=== PATIENT | male | born 1955 | race African-American/Black ===

== ENCOUNTER 2020-12-26 10:30 | Inpatient (IN) | payer MEDICARE, MEDICAID ==
[~2020-12-26] VITALS: Ht 177.8 cm; Wt 88.9 kg
[~2020-12-26 10:30] MED LIST: DILANTIN; PHENOBARBITAL; dilantin PO
[2020-12-26] MEDS ORDERED: SODIUM CHLORIDE 0.9% 1,000 ML IV ONE (11:00)
[2020-12-26 11:31] LABS: HEMOGLOBIN. 11.5 g/dL (14.0-18.0); MEAN CORPUSCULAR HEMOGLOBIN 30.7 pg (28.0-32.0); MEAN CORPUSCULAR VOLUME 88.4 fL (80.0-94.0); MEAN PLATELET VOLUME 8.1 fl (7.4-10.4); PLATELET 390 x1000/uL (130-400); RED BLOOD CELL COUNT 3.73 mill/uL (4.7-6.1); RED CELL DISTRIBUTION WIDTH 14.6 % (11.6-14.6)
[2020-12-26 11:37] LABS: CHLORIDE 101 mEq/L (98-107)
[2020-12-26 12:07] LABS: PLATELET ESTIMATE NORMAL
[2020-12-26] MEDS ORDERED: IOHEXOL-350 100 ML BOTTLE ONE (15:14)
[2020-12-26] MEDS ORDERED: ENOXAPARIN 80MG/0.8ML SYR SUBCUT ONE (15:15)
[2020-12-26] MEDS ORDERED: CLONIDINE 0.1MG TABLET PO PRN (15:30)
[2020-12-26] MEDS ORDERED: DIPHENHYDRAMINE 50MG/ML VIAL IV PRN (15:30)
[2020-12-26] MEDS ORDERED: GUAIFENESIN 200MG/10ML SUGAR FREE UDC PO PRN (15:30)
[2020-12-26] MEDS ORDERED: DOCUSATE SODIUM 100MG CAPSULE PO PRN (15:30)
[2020-12-26] MEDS ORDERED: ONDANSETRON HCL 4MG/2ML INJ IV PRN (15:30)
[2020-12-26] MEDS ORDERED: HYDROCODONE/ACETAMINOPHEN 5/325MG TABLET PO PRN (15:30)
[2020-12-26] MEDS ORDERED: MAGNESIUM/ALUMINUM HYDROXIDE/SIMETHICONE 30ML UDC PO PRN (15:30)
[2020-12-26] MEDS ORDERED: LORAZEPAM 0.5MG TABLET PO PRN (15:30)
[2020-12-26] MEDS ORDERED: ACETAMINOPHEN 650MG SUPP PR PRN (15:30)
[2020-12-26] MEDS ORDERED: NA PHOS,M-B/NA PHOS,DI-BA ENEMA 118ML PR PRN (15:30)
[2020-12-26] MEDS ORDERED: ACETAMINOPHEN 325MG TABLET PO PRN (15:30)
[2020-12-26] MEDS ORDERED: VANCOMYCIN 1 G PREMIX 200 ML IV SCH (16:00)
[2020-12-26] MEDS ORDERED: PIPERACILLIN/TAZ 3.375G PREMIX 50 ML IV SCH (16:00)
[2020-12-26 16:21] LABS: BG BASE EXCESS -0.4 mmol/L (-2.0-2.0); BG CARBOXYHEMOGLOBIN 0.9 % (0.5-1.5); BG DEOXYHEMOGLOBIN 5.7 % (0.0-5.0); BG FRACTION INSPIRED OXYGEN 21; BG HCO3 ACT 22.4 mmol/L (22.0-26.0); BG METHEMOGLOBIN 0.3 % (0.0-1.5); BG OXYGEN SATURATION 94.2 % (92.0-98.5); BG OXYHEMOGLOBIN 93.1 % (94.0-97.0); BG PCO2 31.6 mmHg (35.0-45.0); BG PH 7.468 (7.350-7.450); BG PO2 69.3 mmHg (75.0-100.0); BG SAMPLE SITE LEFT BRACHIAL; BG VENT MODE ROOM AIR
[2020-12-26 16:36] LABS: CLARITY URINE CLOUDY (CLEAR); COLOR URINE DARK YELLOW (YELLOW); KETONES URINE TRACE (NEGATIVE); LEUKOCYTE ESTERASE URINE 3+ (NEGATIVE); NITRITE URINE NEGATIVE (NEGATIVE); OCCULT BLOOD URINE 2+ (NEGATIVE); PROTEIN URINE 1+ (NEGATIVE); SPECIFIC GRAVITY URINE 1.019 (1.005-1.030)
[2020-12-26 17:09] LABS: *AMPHETAMINES SCREEN URINE NEGATIVE (NEGATIVE); *BARBITURATES SCREEN URINE NEGATIVE (NEGATIVE)
[2020-12-26] MEDS: SODIUM CHLORIDE 0.9% 1,000 ML IV SCH (17:09)
[2020-12-26] MEDS: FAMOTIDINE 20MG/2ML VIAL IV SCH (17:09)
[2020-12-26] MEDS: METHYLPREDNISOLONE SOD SUCC 40 MG/ML VIAL IV SCH ×2 (17:09→22:04)
[2020-12-26 17:10] LABS: *BENZODIAZEPINES SCREEN URINE NEGATIVE (NEGATIVE); *COCAINE SCREEN URINE NEGATIVE (NEGATIVE); CANNABINOID URINE SCREEN NEGATIVE (NEGATIVE); METHADONE URINE SCREEN NEGATIVE (NEGATIVE); OPIATES URINE SCREEN NEGATIVE (NEGATIVE); PHENCYCLIDINE URINE SCREEN NEGATIVE (NEGATIVE)
[2020-12-26 19:45] VITALS: BP 128/64
[2020-12-26 20:00] VITALS: BP 120/64
[2020-12-26] MEDS: PHENYTOIN SODIUM EXTENDED 100MG CAPSULE PO SCH (22:03)
[2020-12-26] MEDS: PIPERACILLIN/TAZOBACTAM 3.375 G in DEXT 5% WATER 100 ML IV SCH (23:30)
[2020-12-27] VITALS: BP 108/64
[2020-12-27 00:29] LABS: CREATINE KINASE 89 IU/L (39-308)
[2020-12-27 00:30] LABS: CREATINE KINASE MB FRACTION < 1.0 ng/mL (0.5-3.6)
[2020-12-27 04:00] VITALS: BP 118/66
[2020-12-27] MEDS: PIPERACILLIN/TAZOBACTAM 3.375 G in DEXT 5% WATER 100 ML IV SCH ×4 (05:14→23:46)
[2020-12-27] MEDS: METHYLPREDNISOLONE SOD SUCC 40 MG/ML VIAL IV SCH ×3 (05:14→21:15)
[2020-12-27] MEDS: SODIUM CHLORIDE 0.9% 1,000 ML IV SCH ×2 (05:15→18:23)
[2020-12-27] MEDS: PHENYTOIN SODIUM EXTENDED 100MG CAPSULE PO SCH ×3 (05:15→21:14)
[2020-12-27 07:09] LABS: HEMATOCRIT. 32.2 % (42.0-52.0); HEMOGLOBIN. 10.7 g/dL (14.0-18.0); MEAN CORPUSCULAR HEMOGLOBIN 29.6 pg (28.0-32.0); MEAN CORPUSCULAR VOLUME 89.5 fL (80.0-94.0); MEAN PLATELET VOLUME 8.5 fl (7.4-10.4); PLATELET 343 x1000/uL (130-400); RED CELL DISTRIBUTION WIDTH 14.6 % (11.6-14.6)
[2020-12-27 07:23] LABS: CHLORIDE 104 mEq/L (98-107)
[2020-12-27 07:38] LABS: CREATINE KINASE MB FRACTION < 1.0 ng/mL (0.5-3.6); HDL CHOLESTEROL 13 mg/dL (40-59); LDL CHOLESTEROL 71 mg/dL (5-100)
[2020-12-27 07:39] LABS: CREATINE KINASE 96 IU/L (39-308); T4 FREE 1.63 ng/dL (0.76-1.46)
[2020-12-27 08:00] VITALS: BP 109/68
[2020-12-27] MEDS: FAMOTIDINE 20MG/2ML VIAL IV SCH (08:40)
[2020-12-27] MEDS: VANCOMYCIN 1250MG in DEXTROSE 5% WATER 250ML IV SCH (10:59)
[2020-12-27 12:00] VITALS: BP 103/60
[2020-12-27] MEDS: ENOXAPARIN 40MG/0.4ML SYR SUBCUT SCH (14:54)
[2020-12-27 16:00] VITALS: BP 113/77
[2020-12-27 19:49] LABS: PLATELET ESTIMATE NORMAL
[2020-12-27 20:40] VITALS: BP 110/70
[2020-12-28 00:21] VITALS: BP 120/69
[2020-12-28] MEDS: VANCOMYCIN 1250MG in DEXTROSE 5% WATER 250ML IV SCH ×2 (03:43→21:27)
[2020-12-28 04:15] VITALS: BP 119/74
[2020-12-28] MEDS: METHYLPREDNISOLONE SOD SUCC 40 MG/ML VIAL IV SCH ×3 (05:54→21:26)
[2020-12-28] MEDS: PIPERACILLIN/TAZOBACTAM 3.375 G in DEXT 5% WATER 100 ML IV SCH ×4 (06:06→23:12)
[2020-12-28] MEDS: PHENYTOIN SODIUM EXTENDED 100MG CAPSULE PO SCH ×3 (06:11→21:26)
[2020-12-28 06:41] LABS: HEMATOCRIT. 32.5 % (42.0-52.0); HEMOGLOBIN. 10.1 g/dL (14.0-18.0); MEAN CORPUSCULAR HEMOGLOBIN 28.1 pg (28.0-32.0); MEAN CORPUSCULAR VOLUME 90.1 fL (80.0-94.0); MEAN PLATELET VOLUME 8.8 fl (7.4-10.4); PLATELET 358 x1000/uL (130-400); RED CELL DISTRIBUTION WIDTH 14.9 % (11.6-14.6)
[2020-12-28 07:04] LABS: CHLORIDE 105 mEq/L (98-107)
[2020-12-28 08:00] VITALS: BP 107/68
[2020-12-28] MEDS: FAMOTIDINE 20MG TABLET PO SCH (10:31)
[2020-12-28] MEDS: SODIUM CHLORIDE 0.9% 1,000 ML IV SCH (11:18)
[2020-12-28 12:00] VITALS: BP 104/60
[2020-12-28 13:42] LABS: PLATELET ESTIMATE NORMAL
[2020-12-28] MEDS: ENOXAPARIN 40MG/0.4ML SYR SUBCUT SCH (15:14)
[2020-12-28 20:00] VITALS: BP 99/60
[2020-12-29] VITALS (7 sets, daily range): BP systolic 102–141; BP diastolic 65–83
[2020-12-29] MEDS: SODIUM CHLORIDE 0.9% 1,000 ML IV SCH ×2 (03:29→11:09)
[2020-12-29] MEDS: PIPERACILLIN/TAZOBACTAM 3.375 G in DEXT 5% WATER 100 ML IV SCH ×2 (06:44→11:51)
[2020-12-29] MEDS: METHYLPREDNISOLONE SOD SUCC 40 MG/ML VIAL IV SCH ×3 (06:44→21:02)
[2020-12-29] MEDS: PHENYTOIN SODIUM EXTENDED 100MG CAPSULE PO SCH ×3 (06:45→21:02)
[2020-12-29 06:52] LABS: CHLORIDE 107 mEq/L (98-107)
[2020-12-29 07:00] LABS: HEMATOCRIT. 32.1 % (42.0-52.0); HEMOGLOBIN. 10.6 g/dL (14.0-18.0); MEAN CORPUSCULAR HEMOGLOBIN 29.7 pg (28.0-32.0); MEAN CORPUSCULAR VOLUME 90.3 fL (80.0-94.0); MEAN PLATELET VOLUME 8.8 fl (7.4-10.4); PLATELET 351 x1000/uL (130-400); RED BLOOD CELL COUNT 3.56 mill/uL (4.7-6.1); RED CELL DISTRIBUTION WIDTH 15.2 % (11.6-14.6)
[2020-12-29] MEDS: FAMOTIDINE 20MG TABLET PO SCH (09:13)
[2020-12-29] MEDS ORDERED: VANCOMYCIN 1 G PREMIX 200 ML IV SCH (12:00)
[2020-12-29] MEDS: ENOXAPARIN 40MG/0.4ML SYR SUBCUT SCH (14:58)
[2020-12-29] MEDS: ALBUTEROL (0.083%) 2.5MG/3ML NEB INH SCH ×2 (15:21→21:19)
[2020-12-29] MEDS: LEVOFLOXACIN 500MG TABLET PO SCH (16:35)
[2020-12-29 17:02] LABS: PLATELET ESTIMATE NORMAL
[2020-12-30] MEDS: ALBUTEROL (0.083%) 2.5MG/3ML NEB INH SCH ×3 (01:50→13:17)
[2020-12-30 04:00] VITALS: BP 107/58
[2020-12-30] MEDS: SODIUM CHLORIDE 0.9% 1,000 ML IV SCH (04:23)
[2020-12-30] MEDS: PHENYTOIN SODIUM EXTENDED 100MG CAPSULE PO SCH (05:03)
[2020-12-30] MEDS: METHYLPREDNISOLONE SOD SUCC 40 MG/ML VIAL IV SCH (05:03)
[2020-12-30 06:48] LABS: CHLORIDE 104 mEq/L (98-107)
[2020-12-30 06:54] LABS: HEMATOCRIT. 32.5 % (42.0-52.0); HEMOGLOBIN. 10.2 g/dL (14.0-18.0); MEAN CORPUSCULAR HEMOGLOBIN 28.6 pg (28.0-32.0); MEAN CORPUSCULAR VOLUME 90.7 fL (80.0-94.0); MEAN PLATELET VOLUME 9.1 fl (7.4-10.4); PLATELET 428 x1000/uL (130-400); RED BLOOD CELL COUNT 3.58 mill/uL (4.7-6.1); RED CELL DISTRIBUTION WIDTH 15.2 % (11.6-14.6)
[2020-12-30] MEDS: FAMOTIDINE 20MG TABLET PO SCH (09:34)
[2020-12-30] MEDS: LEVOFLOXACIN 500MG TABLET PO SCH (11:59)
[2020-12-30 12:00] VITALS: BP 124/73
[2020-12-30 13:25] LABS: PLATELET ESTIMATE INCREASED
[2020-12-30 16:00] VITALS: BP 111/63
[2020-12-30 16:37] VITALS: BP 121/64
[2021-01-01 05:08] VITALS: BP 117/80
== END 2020-12-30 17:40 | disposition home or self-care (01) | DRG 871 ==
LOC: ER 10:30 → 7WST 15:16 → ENRESERV 16:52 → SUPCPDRO 16:56 → 6WST 12-28 04:50
PROVIDERS: ADMIT Internal Medicine; ATTEND Internal Medicine
DX: A41.59 Other Gram-negative sepsis (principal); J96.01 Acute respiratory failure with hypoxia; D68.59 Other primary thrombophilia; J45.901 Unspecified asthma with (acute) exacerbation; E87.1 Hypo-osmolality and hyponatremia; N12 Tubulo-interstitial nephritis, not specified as acute or chronic; G40.909 Epilepsy, unspecified, not intractable, without status epilepticus; B96.4 Proteus (mirabilis) (morganii) as the cause of diseases classified elsewhere; D64.9 Anemia, unspecified; Z20.822 Contact with and (suspected) exposure to COVID-19; R73.9 Hyperglycemia, unspecified; I10 Essential (primary) hypertension; Z96.643 Presence of artificial hip joint, bilateral; D72.829 Elevated white blood cell count, unspecified; K76.0 Fatty (change of) liver, not elsewhere classified; T38.0X5A Adverse effect of glucocorticoids and synthetic analogues, initial encounter; Y92.89 Other specified places as the place of occurrence of the external cause; Z85.46 Personal history of malignant neoplasm of prostate; Z91.19 Patient's noncompliance with other medical treatment and regimen; Z79.899 Other long term (current) drug therapy; R00.0 Tachycardia, unspecified
CPT/HCPCS: 36415; 36600; 71045; 71275; 74176; 76700; 80048; 80053; 80061; 80185; 80202; 80305; 81003; 82375; 82550; 82553; 82805; 83036; 83880; 84145; 84153; 84439; 84443; 84484; 85025; 85379; 87077; 87186; 87426; 93005; 93306; 93970; 94640; 97162; 99285; J1200; J1650; J2543; J2920; J3370; J3490; J7030; J7060; Q9967; U0003; G0103